=== PATIENT | female | born 1975 | race Caucasian/White ===

== ENCOUNTER 2016-03-14 13:16 | Outpatient (RCR) | payer OTHER ==
--- OUTSIDE RECORDS SUMMARY | 2015-12-24 15:57 | XMS REPORT | Continuity of Care Document ---
Author Author [facility] Organization [facility] Address Unknown Phone Unavailable Support Name Relationship Address Phone MIGUEL ÁNGEL MARTINEZ MD Caregiver [address] [facility] [place] [address] VALE TSE MD Caregiver [address] [place] [address] SCOTT TANNER Next Of Kin [address] [address] Insurance Providers Payer Name Policy Number Subscriber Name Relationship Coventry [id number] Clarke Tanner 18 Self / Same As Patient [place] Claims [facility] [place] [id number] Clarke Tanner 18 Self / Same As Patient Advance Directives Directive Response Recorded Date/Time Advance Directives No 01/01/14 9:30am Health Care Power of Java Lead Engineer No 01/01/14 9:30am Organ Donor Yes 01/01/14 9:30am Resuscitation Status Full Code 01/01/14 9:30am Problems No known problems or medical conditions. Medications Medication Dose Route Sig Days/Qty Instructions Order Date Discontinued Date Status Aspirin 325 Mg PO DAILY 04/29/09 Active Solifenacin 04/29/09 07/24/13 Discontinued Guanfacine Hcl 04/29/09 07/24/13 Discontinued Triamterene/Hydrochlorothiazid 04/29/09 12/31/13 Discontinued Losartan/Hydrochlorothiazide 1 Tab PO DAILY 12/31/13 Active Multivitamin 1 Tab PO DAILY 12/31/13 Active Metformin HCl (Glucophage) 1,000 Mg PO TWICE A DAY WITH MEALS Active Hydrocodone/Acetaminophen 1-2 Each PO EVERY 6 HOURS 30 Qty 01/01/14 Active Social History Social History Problem Response Recorded Date/Time Smoking Status Former Smoker 01/01/2014 9:30am Query Response Start Date Stop Date Smoking Status Former Smoker 01/01/2007 Hospital Discharge Instructions No hospital discharge instructions. Plan of Care No plan of care. Functional Status No functional status results. Allergies, Adverse Reactions, Alerts Allergen Type Severity Reaction Status Last Updated Sulfa (Sulfonamide Antibiotics) ([id number]) Allergy Mild "PUTS ME TO SLEEP " Active 09/28/08 Immunizations No immunization records. Vital Signs Acute Vital Signs Vital Response Date/Time Temperature (Fahrenheit) 98.2 degrees F (97.6 - 99.5) Temperature (Calculated Celsius) 36.38774 degrees C (36.4 - 37.5) Temperature Source Temporal Pulse Rate (adult) 88 bpm (60 - 90) Respiratory Rate 16 bpm (12 - 24) O2 Sat by Pulse Oximetry 97 % (88 - 100) Blood Pressure 125/81 mm Hg Pain Pain Intensity 0 Height (Feet) 5 feet Height (Inches) 7.00 inches Height (Calculated Centimeters) 170.543528 cm Weight (Pounds) 282 pounds Weight (Calculated Grams) 489572.050 gm Weight (Calculated Kilograms) 127.667592 kilograms Height 5 ft 7 in Weight 282 lb Body Mass Index 44.2 kg/m^2 Results Test Source Date Result Interp. Ref. Range Comments Alanine Aminotransferase (ALT/SGPT) June 20, 2011 9:55am 64 U/L N 30- 65 [facility] Albumin June 20, 2011 9:55am 3.5 G/DL N 3.4-5.0 [facility] Alkaline Phosphatase June 20, 2011 9:55am 129 U/L N 50-136 [facility] Alpha Fetoprotein March 23, 2011 2:10pm 1.9 NG/ML - INTERPRETIVE DATAPatients who have received Oncoscinct CR/OV tracer may develop human anti-mouse antibodies that cause interference in this test and cause falsely elevated results. Please advise laboratory if this is a possibility so that alternate testing procedures may be used. Aspartate Amino Transf (AST/SGOT) June 20, 2011 9:55am 32 U/L N 15-37 [facility] BUN/Creatinine Ratio June 20, 2011 9:55am 11 - [facility] Basophils # (Auto) October 16, 2011 9:39am 0.0 10^3/uL N 0.0-0.1 Basophils (%) (Auto) October 16, 2011 9:39am 0 % N 0-10 Blood Urea Nitrogen June 20, 2011 9:55am 10 MG/DL N 7-18 [facility] Calcium Level June 20, 2011 9:55am 8.7 MG/DL N 8.5-10.1 [facility] Carbon Dioxide Level June 20, 2011 9:55am 29 MMOL/L N 21-32 [facility] Chloride Level June 20, 2011 9:55am 102 MMOL/L N 101-110 [facility] Cholesterol Level January 18, 2009 8:45am 171 MG/DL N -200 Creatinine June 20, 2011 9:55am 0.9 MG/DL N 0.6-1.3 [facility] Eosinophils # (Auto) October 16, 2011 9:39am 0.1 10^3/uL N 0.0-0.3 Eosinophils (%) (Auto) October 16, 2011 9:39am 2 % N 0-10 Ferritin January 05, 2012 10:05am 94 NG/ML - Free Thyroxine May 24, 2009 3:40pm 1.00 NG/DL N 0.59-1.17 PORT DRAW? Glucose Level June 20, 2011 9:55am 75 MG/DL N 74-106 [facility] HDL Cholesterol January 18, 2009 8:45am 39 MG/DL N 35-60 Hematocrit July 22, 2013 8:33am 39 % N 35-52 PLEASE DRAW EXTRA TUBES FOR BB.HEMO: IF HGB IS GREATER THAN 12 PLEASE SEE [facility] FOR LAB ORDER. Hemochromatosis Results September 29, 2008 4:20pm SEE FOOTNOTE COPIES - COMPOUND HETEROZYGOUS FOR THE C282Y AND H63D MUTATIONS.INTERPRETATION: DNA TESTING INDICATES THAT THIS INDIVIDUAL IS POSITIVE FOR ONE COPY EACH OF THE C282Y AND H63D MUTATION IN HFE GENE. APPROXIMATELY 3%-8% OF INDIVIDUALS WITH A BIOCHEMICAL DIAGNOSIS OF HEREDITARY HEMOCHROMATOSIS (HH) HAVE THIS GENOTYPE. THEREFORE, THIS RESULT IS CONSISTENT WITH A DIAGNOSIS OF HH FOR AN INDIVIDUAL WITH CLINICAL EVIDENCE OF HH. HOWEVER, THIS GENOTYPE DOES PREDICT A DIAGNOSIS OF HH IN AN ASYMPTOMATIC INDIVIDUAL, ONLY 0.5% -2% OF INDIVIDUALS WITH THIS GENOTYPE WILL DEVELOP SYMPTOMS OR CLINICAL EVIDENCE OF THIS DISORDER. CONSIDER GENETIC COUNSELING AND DNA TESTING FOR AT-RISK FAMILY MEMBERS. LABORATORY RESULTS AND SUBMITTED CLINICAL INFORMATION REVIEWED BY JEAN-PAUL KEITH, PH.D., ABMG, CGMB, HCLD. HEREDITARY HEMOCHROMATOSIS (HH) IS AUTOSOMALRECESSIVE DISORDER OF IRON METABOLISM THAT RESULTS IN IRON OVERLOAD AND POTENTIAL ORGAN FAILURE. IT IS ONE OF THE MOST COMMON GENETIC DISORDERS IN INDIVIDUALS OF - ANCESTRY, WITH AN ESTIMATED CARRIER FREQUENCY OF 10%. HH IS CAUSED BY MUTATIONS IN THE HFE GENE. MOST INDIVIDUALS WITH HH (60-90%) ARE HOMOZYGOUS FOR THE C282Y MUTATION. A SMALLER PERCENTAGE OF AFFECTED INDIVIDUALS ARE EITHER COMPOUND HETEROZYGOUS FOR THE C282Y AND H63D MUTATIONS (3-8%), OR HOMOZYGOUS FOR THE H63D MUTATION (APPROXIMATELY 1%). THIS ASSAY DETECTS THE TWO MUTATIONS IN THE HFE GENE, C282Y ([id number]: c.845>A) AND H63D ([id number]: c.187C>G), THAT ARE COMMONLY ASSOCIATED WITH HH. THE MUTATIONS ARE DETECTED BY MULTIPLEX-POLYMERASE CHAIN REACTION (PCR) AMPLIFICATION, FOLLOWED BY DIGESTION OF THE AMPLIFICATION PRODUCTS WITH THE RESTRICTION ENZYMES RsaI and NIaIII, FOR THE DETECTION OF THE C282Y AND H63D MUTATIONS RESPECTIVELY. FLUORSECENT-LABELED RESTRICTION FRAGMENTS ARE DETECTEDBY CAPILLARY ELECTROPHORESIS. THIS ASSAY DOES NOT DETECT OTHER MUTATIONS IN THE HFE GENE THAT CAN CAUSE HH. SINCE GENETIC VARIATION AND OTHER FACTORS CAN AFFECT THE ACCURACY OF DIRECT MUTATION TESTING, THESE RESULTS SHOULD BE INTERPRETED IN LIGHT OF CLINICAL AND FAMILIAL DATA. FOR ASSISTANCE WITH THE INTERPRETATION OF THESE RESULTS, PLEASE CONTACT YOUR LOCAL [employer] GENETIC COUNSELOR OR CALL [phone] ([phone]). THIS TEST WAS DEVELOPED AND ITS PERFORMANCE CHARACTERISTICS HAVE BEEN DETERMINED BY [facility]. PERFORMANCE CHARACTERISTICS REFER TO THE ANALYTICAL PERFORMANCE OF THE TEST. Hemoglobin July 22, 2013 8:33am 13.5 G/DL N 11.5-16.0 PLEASE DRAW EXTRA TUBES FOR BB.HEMO: IF HGB IS GREATER THAN 12 PLEASE SEE VIRGEN FOR LAB ORDER. Hemoglobin A1c January 18, 2009 8:45am 5.4 % - Immunoglobulin G November 24, 2008 8:05am 930 MG/DL - PRINT TO CCRPT5 / PORT DRAW? Immunoglobulin M November 24, 2008 8:05am 106 MG/DL - PRINT TO CCRPT5 / PORT DRAW? Iron Level July 22, 2013 8:33am 123 UG/DL - LDL Cholesterol January 18, 2009 8:45am 107 MG/DL N 0-129 Lactate Dehydrogenase May 24, 2009 3:40pm 164 U/L N 100-190 PORT DRAW ? Lymphocytes # (Auto) October 16, 2011 9:39am 1.9 X 10^3 N 1.0-4.0 Lymphocytes (%) (Auto) October 16, 2011 9:39am 24 % N 12-44 Mean Corpuscular Hemoglobin July 22, 2013 8:33am 32 PG N 25-34 PLEASE DRAW EXTRA TUBES FOR BB.HEMO: IF HGB IS GREATER THAN 12 PLEASE SEE VIRGEN FOR LAB ORDER. Mean Corpuscular Hemoglobin Concent July 22, 2013 8:33am 35 G/DL N 32-36 PLEASE DRAW EXTRA TUBES FOR BB.HEMO: IF HGB IS GREATER THAN 12 PLEASE SEE [facility]IRGEN FOR LAB ORDER. Mean Corpuscular Volume July 22, 2013 8:33am 91 FL N 80-99 PLEASE DRAW EXTRA TUBES FOR BB.HEMO: IF HGB IS GREATER THAN 12 PLEASE SEE [facility] FOR LAB ORDER. Mean Platelet Volume July 22, 2013 8:33am 10.6 FL H 7.4-10.4 PLEASE DRAW EXTRA TUBES FOR BB.HEMO: IF HGB IS GREATER THAN 12 PLEASE SEE [facility]IR[facility] FOR LAB ORDER. Monocytes # (Auto) October 16, 2011 9:39am 0.5 X 10^3 N 0.0-1.0 Monocytes (%) (Auto) October 16, 2011 9:39am 6 % N 0-12 Neutrophils # (Auto) October 16, 2011 9:39am 5.5 X 10^3 N 1.8-7.8 Neutrophils (%) (Auto) October 16, 2011 9:39am 69 % N 42-75 Platelet Count July 22, 2013 8:33am 241 10^3/uL N 130-400 PLEASE DRAW EXTRA TUBES FOR BB.HEMO: IF HGB IS GREATER THAN 12 PLEASE SEE [facility]IRGEN FOR LAB ORDER. Potassium Level June 20, 2011 9:55am 3.7 MMOL/L N 3.6-5.0 PORT FLUSH Red Blood Count July 22, 2013 8:33am 4.21 10^6/uL L 4.35-5.85 PLEASE DRAW EXTRA TUBES FOR BB.HEMO: IF HGB IS GREATER THAN 12 PLEASE SEE [facility]IRGEN FOR LAB ORDER. Red Cell Distribution Width July 22, 2013 8:33am 13.3 % N 10.0-14.5 PLEASE DRAW EXTRA TUBES FOR BB.HEMO: IF HGB IS GREATER THAN 12 PLEASE SEE [facility]IRGEN FOR LAB ORDER. Rheumatoid Factor January 05, 2012 10:05am 1:4 - Serum Viscosity November 24, 2008 8:05am 1.23 cP - Performed by [facility],[address] [place] [id number] www.[email or web address], Chelo Talbot MD, Lab. Director Sodium Level June 20, 2011 9:55am 136 MMOL/L N 135-145 [facility] Thyroid Stimulating Hormone (TSH) May 24, 2010 8:05am 1.81 UIU/ML N 0.34-5.60 PRINT TO CCRPT5 Total Bilirubin June 20, 2011 9:55am 0.4 MG/DL N 0.0-1.0 [facility] Total Iron Binding Capacity July 22, 2013 8:33am 317 UG/DL - Total Protein June 20, 2011 9:55am 7.2 G/DL N 6.4-8.2 [facility] Transferrin % Saturation July 22, 2013 8:33am 39 % - Triglycerides Level January 18, 2009 8:45am 124 MG/DL N 30.0-150.0 Urine Test May 03, 2009 6:35am NEGATIVE - Comments to [employer]: DS 5 VLDL Cholesterol January 18, 2009 8:45am 25 MG/DL N 5-40 White Blood Count July 22, 2013 8:33am 8.3 10^3/uL N 4.3-11.0 PLEASE DRAW EXTRA TUBES FOR BB.HEMO: IF HGB IS GREATER THAN 12 PLEASE SEE VIRGEN FOR LAB ORDER. Estimat Glomerular Filtration Rate June 20, 2011 9:55am > 60 - GFR INTERPRETIVE DATA UNITS FOR ESTIMATED GFR (eGFR): mL/min/1.73 M2 REFERENCE RANGE FOR ESTIMATED GFR (eGFR) eGFR NORMAL eGFR >60 MODERATELY DECREASED eGFR 30-59 SEVERLY DECREASED eGFR 15-29 KIDNEY FAILURE <15 (OR DIALYSIS) Fecal Leukocyte Stain Stool June 02, 2007 12:48pm MRSA Screen Nasal April 29, 2009 9:00am MRSA not isolated Urine Culture Urine-Straight Cath, In/Out May 03, 2009 6:35am Klebsiella Pneumoniae Procedures No known history of procedures. Encounters Encounter Location Date/Time Registered Clinic [facility] 12/31/13 9:56am
[2015-12-24 16:45] LABS: BASOPHILS # (AUTO) 0.1 10^3/uL (0.0-0.1); BASOPHILS % (AUTO) 0 % (0-10); EOSINOPHILS # (AUTO) 0.2 10^3/uL (0.0-0.3); EOSINOPHILS % (AUTO) 1 % (0-10); LYMPHOCYTES # (AUTO) 2.7 X 10^3 (1.0-4.0); LYMPHOCYTES % (AUTO) 23 % (12-44); MEAN CORPUSCULAR HEMOGLOBIN 32 PG (25-34); MEAN CORPUSCULAR HGB CONC 34 G/DL (32-36); MEAN CORPUSCULAR VOLUME 93 FL (80-99); MONOCYTES # (AUTO) 0.9 X 10^3 (0.0-1.0); MONOCYTES % (AUTO) 8 % (0-12); NEUTROPHILS # (AUTO) 8.2 X 10^3 (1.8-7.8); NEUTROPHILS % (AUTO) 68 % (42-75); PLATELET COUNT 259 10^3/uL (130-400); RED BLOOD COUNT 4.25 10^6/uL (4.35-5.85); RED CELL DISTRIBUTION WIDTH 12.3 % (10.0-14.5); WHITE BLOOD COUNT 12.1 10^3/uL (4.3-11.0)
[2015-12-24 17:05] LABS: ALANINE AMINOTRANSFERASE 20 U/L (0-55); ALBUMIN 4.1 G/DL (3.2-4.5); ANION GAP 13 MMOL/L (5-14); ASPARTATE AMINO TRANSFERASE 16 U/L (5-34); BILIRUBIN,TOTAL 0.2 MG/DL (0.1-1.0); BLOOD UREA NITROGEN 9 MG/DL (7-18); BUN/CREATININE RATIO 11; CALCIUM 9.3 MG/DL (8.5-10.1); CARBON DIOXIDE 20 MMOL/L (21-32); CHLORIDE 106 MMOL/L (98-107); CREATININE SERUM 0.84 MG/DL (0.60-1.30); GFR ESTIMATED > 60; GLUCOSE 91 MG/DL (70-105); POTASSIUM 4.2 MMOL/L (3.6-5.0); SODIUM 139 MMOL/L (135-145); TOTAL PROTEIN 6.9 G/DL (6.4-8.2)
[2015-12-24 17:27] LABS: THYROID STIMULATING HORMONE 2.07 UIU/ML (0.35-4.94)
[2015-12-26 19:29] LABS: %SAT TOTAL IRON BINDING CAPIC 28 % (15-50); TIBC 308 ug/dL (280-380)
[2015-12-27 07:49] LABS: FERRITIN 32 ng/mL (15-150); UIBC 221 ug/dL (55-450)
[~2016-03-14 13:16] MED LIST: ASP325T PO; GUAN1TAB21; HYDR-3729 PO; LOSA-35 PO; METF-380 PO; MULT-974 PO; SOLI10TA4; TRIA1CAP4
== END 2016-03-23 | disposition home or self-care (01) ==
LOC: ONC 13:16
PROVIDERS: ATTEND Internal Medicine Hematology & Oncology
DX: E83.110 Hereditary hemochromatosis (principal); E11.9 Type 2 diabetes mellitus without complications; I10 Essential (primary) hypertension; E66.01 Morbid (severe) obesity due to excess calories; Z68.36 Body mass index [BMI] 36.0-36.9, adult; E28.2 Polycystic ovarian syndrome; Z85.41 Personal history of malignant neoplasm of cervix uteri; Z45.2 Encounter for adjustment and management of vascular access device
CPT/HCPCS: 36591; 80053; 82728; 83540; 84439; 84443; 85025; 99213

== ENCOUNTER → 2016-04-04 | Outpatient (CLI) | payer OTHER ==
[~2016-04-04] MED LIST changes: +CATHETER FLUSH 10 ML SYR IV PRN; +IOHEXOL 350 MG/ML 100 ML (OMNIPAQUE 350) VIAL IV ONE; +NS 100 ML (IVPB) BAG IV ONE
--- OUTSIDE RECORDS SUMMARY | 2016-04-04 13:17 | XMS REPORT | Continuity of Care Document ---
Author Author [facility] Organization [facility] Address Unknown Phone Unavailable Support Name Relationship Address Phone MIGUEL ÁNGEL MARTINEZ MD Caregiver [address] [facility] [place] [address] VALE TSE MD Caregiver [address] [place] [address] SCOTT TANNER Next Of Kin [address] [address] Insurance Providers Payer Name Policy Number Subscriber Name Relationship [employer] [id number] Clarke Tanner 18 Self / Same As Patient [place] Claims [facility] [place] [id number] Clarke Tanner 18 Self / Same As Patient Advance Directives Directive Response Recorded Date/Time Advance Directives No 01/01/14 9:30am Health Care Power of Quality Assurance Project Manager No 01/01/14 9:30am Organ Donor Yes 01/01/14 [...] Reaction Status Last Updated Sulfa (Sulfonamide Antibiotics) ([id number]) Allergy Mild "PUTS ME TO SLEEP " Active 09/28/08 Immunizations No immunization records. Vital Signs Acute Vital Signs Vital Response Date/Time Temperature (Fahrenheit) 98.2 degrees F (97.6 - 99.5) Temperature (Calculated Celsius) 36.06292 degrees C (36.4 - 37.5) Temperature Source Temporal Pulse Rate (adult) 88 bpm (60 - 90) Respiratory Rate 16 bpm (12 - 24) O2 Sat by Pulse Oximetry 97 % (88 - 100) Blood Pressure 125/81 mm Hg Pain Pain Intensity 0 Height (Feet) 5 feet Height (Inches) 7.00 inches Height (Calculated Centimeters) 170.265752 cm Weight (Pounds) 282 pounds Weight (Calculated Grams) 122905.050 gm Weight (Calculated Kilograms) 127.154667 kilograms Height 5 ft 7 in Weight [...] TWO MUTATIONS IN THE HFE GENE, C282Y ([id number]: c.845>A) AND H63D ([id number]: c.187C>G), THAT ARE COMMONLY ASSOCIATED WITH HH. [...] OF THESE RESULTS, PLEASE CONTACT YOUR LOCAL [employer] GENETIC COUNSELOR OR CALL [phone] ([phone]). THIS TEST WAS DEVELOPED AND ITS PERFORMANCE CHARACTERISTICS HAVE BEEN DETERMINED BY [employer] [facility]. PERFORMANCE CHARACTERISTICS REFER TO THE ANALYTICAL [...] 2008 8:05am 1.23 cP - Performed by [facility],[address] [place] [id number] [email or web address], Chelo Talbot MD, Lab. Director Sodium Level [...] 03, 2009 6:35am NEGATIVE - Comments to Tube Station Attendant: DS 5 VLDL Cholesterol January 18, 2009 [...] Encounters Encounter Location Date/Time Registered Clinic [facility] 12/31/13 9:56am
--- NOTE | 2016-04-04 14:20 | Diagnostic Imaging Report ---
PROCEDURE: CT chest with contrast only. TECHNIQUE: Multiple contiguous axial images were obtained through the chest after administration of intravenous contrast. INDICATION: Followup bilateral axillary adenopathy. COMPARISON: None. DISCUSSION: There are no pathologic-appearing axillary lymph nodes identified on either side. There are thin wispy benign-appearing lymph nodes present bilaterally. All visualized lymph nodes within either axilla show a very thin uniform cortex with no suspicious lymph node identified. No focal consolidation or pulmonary nodule. Normal heart size. No pleural or pericardial fluid. No mediastinal or hilar adenopathy. There is an ill-defined soft tissue density within the anterior mediastinum which measures 3.0 x 2.4 cm and could represent residual thymic tissue though is indeterminate. This area appears to be interlaced with fat with no discrete solid nodule otherwise identified. Low-attenuation nodule within the spleen measures 2.8 x 3.4 cm and likely represents a cyst or hemangioma though is indeterminate. The gallbladder is surgically absent. The remainder of the visualized upper abdomen is unremarkable. No acute osseous abnormality is identified. IMPRESSION: 1. No suspicious or pathologically enlarged axillary lymph nodes are identified by CT. 2. Ill-defined soft tissue density within the anterior mediastinum is nonspecific though could be seen with residual thymic tissue. 3. Indeterminate low-attenuation nodule within the spleen. Dictated by: Dictated on workstation # [id number]
== END ==
LOC: RAD 13:13
PROVIDERS: ATTEND Internal Medicine Hematology & Oncology
DX: R59.9 Enlarged lymph nodes, unspecified (principal)
CPT/HCPCS: 71260

== ENCOUNTER → 2016-06-01 | Outpatient (CLI) | payer OTHER ==
[~2016-06-01] MED LIST changes: -CATHETER FLUSH 10 ML SYR IV PRN; -IOHEXOL 350 MG/ML 100 ML (OMNIPAQUE 350) VIAL IV ONE; -NS 100 ML (IVPB) BAG IV ONE
--- OUTSIDE RECORDS SUMMARY | 2016-06-01 12:16 | XMS REPORT | Continuity of Care Document ---
Author Author [facility] Organization [facility] Address Unknown Phone Unavailable Support Name Relationship Address Phone MIGUEL ÁNGEL MARTINEZ MD Caregiver [address] [facility] [place] [address] VALE TSE MD Caregiver [address] [place] [address] SCOTT TANNER Next Of Kin [address] [address] Insurance Providers Payer Name Policy Number Subscriber Name Relationship [employer] [id number] Clarke Tanner 18 Self / Same As Patient [place] Claims [facility] [place] [id number] Clarke Tanner 17 Self / Same As Patient Advance Directives Directive Response Recorded Date/Time Advance Directives No 01/01/14 9:30am Health Care Power of Inspector [place] No 01/01/14 9:30am Organ Donor Yes 01/01/14 [...] Reaction Status Last Updated Sulfa (Sulfonamide Antibiotics) ([id number]) Allergy Mild "PUTS ME TO SLEEP " Active 09/28/08 Immunizations No immunization records. Vital Signs Acute Vital Signs Vital Response Date/Time Temperature (Fahrenheit) 98.2 degrees F (97.6 - 99.5) Temperature (Calculated Celsius) 36.23103 degrees C (36.4 - 37.5) Temperature Source Temporal Pulse Rate (adult) 88 bpm (60 - 90) Respiratory Rate 16 bpm (12 - 24) O2 Sat by Pulse Oximetry 97 % (88 - 100) Blood Pressure 125/81 mm Hg Pain Pain Intensity 0 Height (Feet) 5 feet Height (Inches) 7.00 inches Height (Calculated Centimeters) 170.560148 cm Weight (Pounds) 282 pounds Weight (Calculated Grams) 583928.050 gm Weight (Calculated Kilograms) 127.694310 kilograms Height 5 ft 7 in Weight [...] TWO MUTATIONS IN THE HFE GENE, C282Y ([id number]: c.845>A) AND H63D ([id number]: c.187C>G), THAT ARE COMMONLY ASSOCIATED WITH HH. [...] OF THESE RESULTS, PLEASE CONTACT YOUR LOCAL [employer] GENETIC COUNSELOR OR CALL [phone] ([phone]). THIS TEST WAS DEVELOPED AND ITS PERFORMANCE CHARACTERISTICS HAVE BEEN DETERMINED BY [employer] [facility]. PERFORMANCE CHARACTERISTICS REFER TO THE ANALYTICAL PERFORMANCE [...] 2008 8:05am 1.23 cP - Performed by [facility],[address] [place] [id number] www.[email or web address], Chelo Talbot MD, Lab. Director Sodium Level [...] 03, 2009 6:35am NEGATIVE - Comments to Branch Lead: DS 5 VLDL Cholesterol January 18, 2009 [...] Encounters Encounter Location Date/Time Registered Clinic [facility] 12/31/13 9:56am
--- NOTE | 2016-06-01 19:55 | Diagnostic Imaging Report ---
EXAMINATION: Bilateral axilla ultrasound. INDICATION: Bilateral swelling in the axilla. FINDINGS: Lobulated areas of slightly hyperechoic tissue is seen in the right axilla, measuring 3.7 x 2.2 x 3.4 cm and on the left side, measuring 4.3 x 2.2 x 2.4 cm. This correlates with the mammographic appearance of fatty density with no solid lesion or lymph node identified. This is in favor of accessory breast tissue or lipomas. IMPRESSION: The findings are favored to be related to accessory fatty breast tissue or perhaps lipomas. Clinical followup is recommended. Followup breast imaging could be considered if there is worsening or change in the clinical exam. ACR BI-RADS Category 3: Probably benign findings. Result letter will be mailed to the patient. Note: At least 10% of breast cancer is not imaged by mammography. Dictated by: Dictated on workstation # [id number]
--- NOTE | 2016-06-01 20:07 | Diagnostic Imaging Report ---
Bilateral diagnostic mammogram. INDICATION: Bilateral axillary masses. COMPARISON STUDY: 12/10/15. The current study was also evaluated with a Computer Aided Detection (CAD) system. FINDINGS: Bilateral lumps in the axillary regions were marked and demonstrate underlying fat density tissue with no suspicious mass. The rest of the breast on both sides demonstrates heterogeneously dense parenchyma with no change from the prior exams. IMPRESSION: Stable mammographic findings. Fat density underlying the palpable areas in the axillary regions seen which could be accessory breast tissue or lipomas. Ultrasound evaluation pending. ACR BI-RADS Category 0: Incomplete. (Needs additional imaging evaluation). Result letter will be mailed to the patient. Note: At least 10% of breast cancer is not imaged by mammography. Dictated by: Dictated on workstation # [id number]
== END ==
LOC: RAD 12:12
PROVIDERS: ATTEND Family Medicine
DX: Q83.1 Accessory breast (principal)
CPT/HCPCS: 76642; 77066

== ENCOUNTER 2016-06-12 13:42 | Outpatient (RCR) | payer OTHER ==
--- OUTSIDE RECORDS SUMMARY | 2016-03-30 13:07 | XMS REPORT | Continuity of Care Document ---
Author Author [facility] Organization [facility] Address Unknown Phone Unavailable Support Name Relationship Address Phone MIGUEL ÁNGEL MARTINEZ MD Caregiver [address] [facility] [place] [address] VALE TSE MD Caregiver [address] [place] [address] SCOTT TANNER Next Of Kin [address] [address] Insurance Providers Payer Name Policy Number Subscriber Name Relationship Coventry [id number] Clarke Tanner 18 Self / Same As Patient [place] Claims [facility] [place] [id number] Clarke Tanner 18 Self / Same As Patient Advance Directives Directive Response Recorded Date/Time Advance Directives No 01/01/14 9:30am Health Care Power of Senior Manager Creative Services No 01/01/14 9:30am Organ Donor Yes 01/01/14 [...] Reaction Status Last Updated Sulfa (Sulfonamide Antibiotics) ([id number]) Allergy Mild "PUTS ME TO SLEEP " Active 09/28/08 Immunizations No immunization records. Vital Signs Acute Vital Signs Vital Response Date/Time Temperature (Fahrenheit) 98.2 degrees F (97.6 - 99.5) Temperature (Calculated Celsius) 36.35128 degrees C (36.4 - 37.5) Temperature Source Temporal Pulse Rate (adult) 88 bpm (60 - 90) Respiratory Rate 16 bpm (12 - 24) O2 Sat by Pulse Oximetry 97 % (88 - 100) Blood Pressure 125/81 mm Hg Pain Pain Intensity 0 Height (Feet) 5 feet Height (Inches) 7.00 inches Height (Calculated Centimeters) 170.988942 cm Weight (Pounds) 282 pounds Weight (Calculated Grams) 757027.050 gm Weight (Calculated Kilograms) 127.397949 kilograms Height 5 ft 7 in Weight [...] TWO MUTATIONS IN THE HFE GENE, C282Y ([id number]: c.845>A) AND H63D ([id number]: c.187C>G), THAT ARE COMMONLY ASSOCIATED WITH HH. [...] OF THESE RESULTS, PLEASE CONTACT YOUR LOCAL [employer] GENETIC COUNSELOR OR CALL [phone] ([phone]). THIS TEST WAS DEVELOPED AND ITS PERFORMANCE CHARACTERISTICS HAVE BEEN DETERMINED BY [employer] [facility]. PERFORMANCE CHARACTERISTICS REFER TO THE ANALYTICAL [...] 2008 8:05am 1.23 cP - Performed by [facility],[address] [place] [id number] www.[email or web address], Chelo Talbot MD, Lab. Director Sodium Level [...] 03, 2009 6:35am NEGATIVE - Comments to Drone Operator: DS 5 VLDL Cholesterol January 18, 2009 [...] Encounters Encounter Location Date/Time Registered Clinic [facility] 12/31/13 9:56am
== END 2016-06-28 | disposition home or self-care (01) ==
LOC: ONC 13:42
PROVIDERS: ATTEND Internal Medicine Hematology & Oncology
DX: E83.110 Hereditary hemochromatosis (principal); E11.9 Type 2 diabetes mellitus without complications; I10 Essential (primary) hypertension; E66.01 Morbid (severe) obesity due to excess calories; Z68.36 Body mass index [BMI] 36.0-36.9, adult; E28.2 Polycystic ovarian syndrome; Z85.41 Personal history of malignant neoplasm of cervix uteri; Z45.2 Encounter for adjustment and management of vascular access device
CPT/HCPCS: 36591; 99213

== ENCOUNTER → 2016-08-22 | Outpatient (CLI) | payer OTHER | LOC: LAB 16:20 | PROVIDERS: ATTEND Family Medicine | DX: Z53.9 Procedure and treatment not carried out, unspecified reason (principal) ==

== ENCOUNTER 2016-09-20 15:34 | Outpatient (RCR) | payer OTHER ==
[~2016-09-20 15:34] MED LIST changes: +ALTEPLASE 2 MG (CATHFLO) CANCER CENTER IV ONE
== END 2016-10-24 15:35 | disposition home or self-care (01) ==
LOC: ONC 15:34
PROVIDERS: ATTEND Internal Medicine Hematology & Oncology
DX: E83.110 Hereditary hemochromatosis (principal); Z85.41 Personal history of malignant neoplasm of cervix uteri; E11.9 Type 2 diabetes mellitus without complications; I10 Essential (primary) hypertension; E28.2 Polycystic ovarian syndrome; E66.01 Morbid (severe) obesity due to excess calories; Z68.36 Body mass index [BMI] 36.0-36.9, adult; Z79.899 Other long term (current) drug therapy
CPT/HCPCS: 36591; 36593; 96523; 99195; 99213

== ENCOUNTER 2016-12-05 14:54 | Outpatient (RCR) | payer OTHER ==
[~2016-12-05 14:54] MED LIST changes: -ALTEPLASE 2 MG (CATHFLO) CANCER CENTER IV ONE
== END 2016-12-16 | disposition home or self-care (01) ==
LOC: ONC 14:54
PROVIDERS: ATTEND Internal Medicine Hematology & Oncology
DX: E83.110 Hereditary hemochromatosis (principal); Z85.41 Personal history of malignant neoplasm of cervix uteri; E11.9 Type 2 diabetes mellitus without complications; I10 Essential (primary) hypertension; E28.2 Polycystic ovarian syndrome; E66.01 Morbid (severe) obesity due to excess calories; Z68.36 Body mass index [BMI] 36.0-36.9, adult; Z79.899 Other long term (current) drug therapy; Z45.2 Encounter for adjustment and management of vascular access device
CPT/HCPCS: 36591; 96523; 99213

== ENCOUNTER 2017-03-15 15:13 | Outpatient (RCR) | payer OTHER ==
[2017-02-21 14:51] LABS: BASOPHILS # (AUTO) 0.1 10^3/uL (0.0-0.1); BASOPHILS % (AUTO) 0 % (0-10); EOSINOPHILS # (AUTO) 0.2 10^3/uL (0.0-0.3); EOSINOPHILS % (AUTO) 1 % (0-10); HEMATOCRIT 41 % (35-52); HEMOGLOBIN 13.9 G/DL (11.5-16.0); LYMPHOCYTES # (AUTO) 4.6 X 10^3 (1.0-4.0); LYMPHOCYTES % (AUTO) 19 % (12-44); MEAN CORPUSCULAR HEMOGLOBIN 32 PG (25-34); MEAN CORPUSCULAR HGB CONC 34 G/DL (32-36); MEAN CORPUSCULAR VOLUME 95 FL (80-99); MONOCYTES # (AUTO) 1.8 X 10^3 (0.0-1.0); MONOCYTES % (AUTO) 8 % (0-12); NEUTROPHILS % (AUTO) 72 % (42-75); PLATELET COUNT 331 10^3/uL (130-400); RED BLOOD COUNT 4.29 10^6/uL (4.35-5.85); RED CELL DISTRIBUTION WIDTH 12.9 % (10.0-14.5); WHITE BLOOD COUNT 23.6 10^3/uL (4.3-11.0)
[2017-02-21 15:13] LABS: ALANINE AMINOTRANSFERASE 20 U/L (0-55); ALKALINE PHOSPHATASE 98 U/L (40-136); BILIRUBIN,TOTAL 0.3 MG/DL (0.1-1.0); BUN/CREATININE RATIO 13; CALCIUM 9.2 MG/DL (8.5-10.1); CARBON DIOXIDE 25 MMOL/L (21-32); CHLORIDE 104 MMOL/L (98-107); CREATININE SERUM 0.87 MG/DL (0.60-1.30); GFR ESTIMATED > 60; GLUCOSE 114 MG/DL (70-105); POTASSIUM 3.3 MMOL/L (3.6-5.0); SODIUM 139 MMOL/L (135-145); TOTAL PROTEIN 7.3 GM/DL (6.4-8.2)
== END 2017-04-29 | disposition home or self-care (01) ==
LOC: ONC 15:13
PROVIDERS: ATTEND Internal Medicine Hematology & Oncology
DX: E83.110 Hereditary hemochromatosis (principal); Z85.41 Personal history of malignant neoplasm of cervix uteri; E11.9 Type 2 diabetes mellitus without complications; I10 Essential (primary) hypertension; E28.2 Polycystic ovarian syndrome; E66.01 Morbid (severe) obesity due to excess calories; Z68.36 Body mass index [BMI] 36.0-36.9, adult; Z79.899 Other long term (current) drug therapy; Z45.2 Encounter for adjustment and management of vascular access device
CPT/HCPCS: 36591; 80053; 82728; 85025; 96523; 99195; 99213

== ENCOUNTER 2017-07-13 15:30 | Outpatient (RCR) | payer OTHER ==
[2017-05-14 15:47] LABS: BASOPHILS % (AUTO) 0 % (0-10); EOSINOPHILS # (AUTO) 0.3 10^3/uL (0.0-0.3); EOSINOPHILS % (AUTO) 2 % (0-10); HEMATOCRIT 40 % (35-52); LYMPHOCYTES # (AUTO) 2.8 X 10^3 (1.0-4.0); LYMPHOCYTES % (AUTO) 23 % (12-44); MEAN CORPUSCULAR HEMOGLOBIN 33 PG (25-34); MEAN CORPUSCULAR HGB CONC 35 G/DL (32-36); MEAN CORPUSCULAR VOLUME 95 FL (80-99); MEAN PLATELET VOLUME 10.6 FL (7.4-10.4); MONOCYTES % (AUTO) 8 % (0-12); NEUTROPHILS # (AUTO) 8.2 X 10^3 (1.8-7.8); NEUTROPHILS % (AUTO) 67 % (42-75); PLATELET COUNT 284 10^3/uL (130-400); RED CELL DISTRIBUTION WIDTH 12.3 % (10.0-14.5); WHITE BLOOD COUNT 12.3 10^3/uL (4.3-11.0)
[2017-05-14 16:06] LABS: ALANINE AMINOTRANSFERASE 31 U/L (0-55); ALKALINE PHOSPHATASE 88 U/L (40-136); BILIRUBIN,TOTAL 0.4 MG/DL (0.1-1.0); BUN/CREATININE RATIO 13; CALCIUM 9.2 MG/DL (8.5-10.1); CARBON DIOXIDE 25 MMOL/L (21-32); CHLORIDE 105 MMOL/L (98-107); CREATININE SERUM 0.85 MG/DL (0.60-1.30); GFR ESTIMATED > 60; GLUCOSE 106 MG/DL (70-105); POTASSIUM 4.1 MMOL/L (3.6-5.0); SODIUM 140 MMOL/L (135-145); TOTAL PROTEIN 6.9 GM/DL (6.4-8.2)
== END 2017-08-12 | disposition home or self-care (01) ==
LOC: ONC 15:30
PROVIDERS: ATTEND Internal Medicine Hematology & Oncology
DX: E83.110 Hereditary hemochromatosis (principal); Z85.41 Personal history of malignant neoplasm of cervix uteri; E11.9 Type 2 diabetes mellitus without complications; I10 Essential (primary) hypertension; E28.2 Polycystic ovarian syndrome; E66.01 Morbid (severe) obesity due to excess calories; Z68.36 Body mass index [BMI] 36.0-36.9, adult; Z79.899 Other long term (current) drug therapy; Z45.2 Encounter for adjustment and management of vascular access device
CPT/HCPCS: 36591; 80053; 82728; 85025; 96523; 99213

== ENCOUNTER 2017-08-29 05:38 | Outpatient (CLI) | payer OTHER ==
[~2017-08-29] VITALS: Ht 170.2 cm; Wt 108.0 kg
[2017-08-29] MEDS ORDERED: METH-336 PO (10:41)
[2017-08-29] MEDS ORDERED: NFBIOT1000 PO (10:41)
[2017-08-29] MEDS ORDERED: CHOL100045 PO (10:41)
[2017-08-29] MEDS ORDERED: VITA-189 PO (10:41)
[2017-08-29] MEDS ORDERED: BISO5TAB PO (10:41)
[2017-08-29] MEDS ORDERED: CALC600T12 PO (10:41)
[2017-08-29] MEDS ORDERED: MULT-178 PO (10:41)
[2017-08-30] MEDS ORDERED: HYDR-34 PO (09:19)
== END 2017-08-29 10:48 ==
LOC: PREOP 05:38
PROVIDERS: ATTEND Surgery
DX: Z01.818 Encounter for other preprocedural examination (principal)

== ENCOUNTER 2017-08-30 07:01 | Day surgery (SDC) | payer OTHER ==
[~2017-08-30] VITALS: Ht 170.2 cm; Wt 108.0 kg
[~2017-08-30 07:01] MED LIST changes: +BISO5TAB PO; +CALC600T12 PO; +CHOL100045 PO; +METH-336 PO; +MULT-178 PO; +NFBIOT1000 PO; +VITA-189 PO
[2017-08-30] MEDS ORDERED: LACTATED RINGERS 1,000 ML IV PRN (07:05)
[2017-08-30 07:15] VITALS: BP 125/91
[2017-08-30] MEDS ORDERED: ceFAZolin INJECTION 1,000 MG in NS (IVPB) 50 ML IV ONE (07:15)
[2017-08-30] MEDS ORDERED: HEParin (CENTRAL IV FLUSH) 500 UNIT/5 ML SYR ONE ×2 (07:37→09:48)
[2017-08-30] MEDS ORDERED: LIDOCAINE/EPI 1%-1:200,000 (XYLOCAINE) 10 ML VIAL ONE ×2 (07:38→09:48)
--- NOTE | 2017-08-30 07:54 | Progress Note-Pre Operative ---
Pre-Operative Progress Note H&P Reviewed The H&P was reviewed, patient examined and no changes noted. Date Seen by Provider: Aug 30, 2017 Time Seen by Provider: 07:45 Date H&P Reviewed: Aug 30, 2017 Time H&P Reviewed: 07:50 Pre-Operative Diagnosis: Poor venous access, Hemochromatosis, non-functioning groshong port DARCY BOURNE APRN Aug 30, 2017 7:54 am
[2017-08-30] MEDS ORDERED: ACETAMINOPHEN 325 MG TABLET/CAPLET (TYLENOL) PO PRN (08:00)
[2017-08-30] MEDS ORDERED: HYDROcodone/APAP 5 MG/325 MG (LORTAB) TAB PO ONE (08:00)
[2017-08-30] MEDS ORDERED: morphine INJ 10 MG/ML 1ML (SYR OR VIAL) IVP PRN (08:00)
[2017-08-30] MEDS ORDERED: ONDANSETRON 4 MG/2 ML (SDV) Z0FRAN IVP PRN (08:00)
[2017-08-30] MEDS ORDERED: PROPOFOL INJECTION 50 ML IV ONE (08:12)
[2017-08-30] MEDS ORDERED: LIDOCAINE PF 2% 5 ML (XYLOCAINE) VIAL ONE (08:12)
[2017-08-30] MEDS ORDERED: fentaNYL INJECTION 100 MCG/2 ML AMP ONE (08:12)
[2017-08-30] MEDS ORDERED: MIDAZOLAM 2 MG/2 ML (VERSED) VIAL ONE (08:12)
--- NOTE | 2017-08-30 09:18 | Progress Note-Post Operative ---
Post-Operative Progess Note Surgeon (s)/Soubrette (s) Surgeon MIGUEL ÁNGEL MARTINEZ MD Soubrette: dwight guerrero GREASE PRESS HELPER Pre-Operative Diagnosis Poor venous access, Hemochromatosis, non-functioning groshong port Post-Operative Diagnosis same Procedure & Operative Findings Date of Procedure 08/30/17 Procedure Performed/Findings left subclavian groshong removal and replacement under flouroscopy. Anesthesia Type MAC with local Estimated Blood Loss Estimated blood loss (mL): minimal Specimens/Packing Specimens Removed none MIGUEL ÁNGEL MARTINEZ MD Aug 30, 2017 9:18 am
[2017-08-30] MEDS ORDERED: HYDR-34 PO (09:19)
--- NOTE | 2017-08-30 09:21 | Discharge Inst-Surgical ---
D/C Lap Instructions-KIDO New, Converted, or Re-Newed RX: RX on Chart Follow Up PRN Activity as tolerated may access and use port at any time. Regular Diet Symptoms to Report: Fever over 101 degree F, Nausea/Vomiting Infection Signs and Symptoms to report: Increased redness, Foul odor of wound, Increased drainage Bathing instructions: May shower Operative Area Clean/Dry; Keep incision clean/dry If any problems/questions: Contact your physician or go to Emergency Room MIGUEL ÁNGEL MARTINEZ MD Aug 30, 2017 9:21 am
--- NOTE | 2017-08-30 09:36 | Diagnostic Imaging Report ---
INDICATION: Fluoroscopy for Groshong catheter placement. Fluoroscopy was provided in the OR during Groshong catheter placement. 31 seconds of fluoroscopy was utilized. Single images show a Groshong catheter with tip overlying the SVC. IMPRESSION: Fluoroscopy for Groshong catheter placement. Dictated by: Dictated on workstation # [id number]
[2017-08-30 10:00] VITALS: BP 125/85
--- NOTE | 2017-08-30 10:13 | Diagnostic Imaging Report ---
INDICATION: Post Groshong catheter placement. TECHNIQUE: Single view chest 9:41 AM. CORRELATION STUDY: None FINDINGS: Heart size borderline enlarged, vascular normal. Lung rdz are clear. No infiltrate, effusion or pneumothorax. Left-sided central line is present. Tip appears to be superimposed over the posterior level of the mid right atrium. IMPRESSION: 1. Left-sided central line is present. Tip is superimposed over the expected location in the mid right atrium. Clinical correlation recommended for desired positioning. Dictated by: Dictated on workstation # [id number]
[2017-08-30] MEDS ORDERED: HYDROcodone/APAP 5 MG/325 MG (LORTAB) TAB ONE (10:23)
[2017-08-30 10:30] VITALS: BP 125/85
--- NOTE | 2017-08-30 13:19 | Anesthesia-General Post-Op ---
MAC Patient Condition Mental Status/LOC: Same as Preop Cardiovascular: Satisfactory Nausea/Vomiting: Absent Respiratory: Satisfactory Pain: Controlled Complications: Absent Post Op Complications Complications None Follow Up Care/Instructions Patient Instructions None needed. Anesthesiology Discharge Order Discharge Order Patient is doing well, no complaints, stable vital signs, no apparent adverse anesthesia problems. No complications reported per nursing. NOEL TREJO CRNA Aug 30, 2017 13:19
--- NOTE | 2017-08-30 13:59 | OPERATIVE REPORT ---
DATE OF SERVICE: 08/30/2017 ATTENDING PRIMARY CARE PHYSICIAN: Avani Yoder MD. PREOPERATIVE DIAGNOSIS: History of hemochromatosis with a nonfunctioning Groshong implantable catheter. POSTOPERATIVE DIAGNOSIS: History of hemochromatosis with a nonfunctioning Groshong implantable catheter. PROCEDURE PERFORMED: Removal of left subclavian Groshong implantable catheter and replacement of left Groshong implantable catheter under fluoroscopy. SURGEON: Miguel Ángel Martinez MD. BOWLING ALLEY MANAGER: Martin Vega APRN. ANESTHESIA: Monitored anesthesia care with local. ESTIMATED BLOOD LOSS: Minimal. FINDINGS: A nonfunctioning previous Groshong port, placement of a new one under fluoroscopy with the catheter tip at the right superior vena caval - right atrial junction. DISPOSITION: The patient tolerated the procedure well. INDICATIONS: The patient is a 41-year-old female with a history of hemochromatosis requiring frequent blood tests as well as infusions. She initially had a Groshong implantable port in 2007; however, this became nonfunctional and clotted off. We had placed another port in 12/2013; however, in recent weeks, the port was unable to draw blood or saline flush. DESCRIPTION OF PROCEDURE: The patient was brought in the operating room, laid supine on the table. After adequate IV pain and sedative medications and monitored anesthesia care, the chest and neck were prepped and draped in standard surgical fashion. Lidocaine 1% with epinephrine was then used to anesthetize the overlying skin in the left subclavian region. The skin incision was then made using a 15-blade. The subcutaneous tissue was opened using electrocautery. The port capsule was then opened using blunt dissection as well as electrocautery. The port was then removed out of the subcutaneous reservoir and the catheter removed intact while holding pressure with visualization of good hemostasis. Through the same incision, the left subclavian vein was then cannulated in a similar region through a new opening for new venotomy. The guidewire was then inserted under direct visualization. The cannulating needle removed and the dilator and sheath were then introduced over the wire. The dilator and guidewire were then removed and the catheter was then placed through the sheath until the catheter tip was at the superior vena cava - right atrial junction. The sheath was then removed. The inner wire within the catheter was then removed and the catheter cut down to size and port placed onto the catheter and placed in the previous reservoir and sutured to the fascia using interrupted 3-0 Vicryl sutures. The subcutaneous tissue was then reapproximated using 3-0 Vicryl interrupted suture. Skin was closed using 4-0 Monocryl running subcuticular suture. Wound was then cleaned and covered with Dermabond. The patient tolerated the procedure well. We will start IV and oral pain medication. We will get a post-procedure chest x-ray and once placement of the catheter is confirmed the port may be accessed and used any time. Job ID: [id number] DocumentID: [id number] Dictated Date: 08/30/2017 09:29:12 Snack Bar Cook Date: 08/30/2017 13:58:38 Dictated By: MIGUEL ÁNGEL MARTINEZ MD
== END 2017-08-30 10:55 | disposition home or self-care (01) ==
LOC: SDC 07:01
PROVIDERS: ATTEND Surgery
DX: T82.49XA Other complication of vascular dialysis catheter, initial encounter (principal); E83.110 Hereditary hemochromatosis; I10 Essential (primary) hypertension; Z87.891 Personal history of nicotine dependence; Z79.899 Other long term (current) drug therapy
CPT/HCPCS: 71045; 87081

== ENCOUNTER → 2017-10-29 | Outpatient (CLI) | payer OTHER ==
[~2017-10-29] MED LIST changes: +HYDR-34 PO
== END ==
LOC: LAB 13:04
PROVIDERS: ATTEND Surgery
DX: Z98.84 Bariatric surgery status (principal)
CPT/HCPCS: 36415; 82306; 82525; 82607; 82728; 82746; 83036; 84134; 84255; 84425; 84590; 84591; 84630

== ENCOUNTER 2017-12-07 12:48 | Outpatient (RCR) | payer OTHER | END 2017-12-16 | disposition home or self-care (01) | LOC: ONC 12:48 | PROVIDERS: ATTEND Internal Medicine Hematology & Oncology | DX: E83.110 Hereditary hemochromatosis (principal); Z85.41 Personal history of malignant neoplasm of cervix uteri; E11.9 Type 2 diabetes mellitus without complications; I10 Essential (primary) hypertension; E28.2 Polycystic ovarian syndrome; E66.01 Morbid (severe) obesity due to excess calories; Z68.36 Body mass index [BMI] 36.0-36.9, adult; Z79.899 Other long term (current) drug therapy; Z45.2 Encounter for adjustment and management of vascular access device | CPT/HCPCS: 96523 ==

== ENCOUNTER → 2018-02-11 | Outpatient (CLI) | payer OTHER ==
--- NOTE | 2018-02-11 10:06 | Diagnostic Imaging Report ---
PROCEDURE: US Hepatic (Liver). TECHNIQUE: Multiple real-time grayscale images were obtained over the right upper quadrant in various projections. INDICATION: Hemochromatosis. FINDINGS: Liver is normal in size at 12.3 cm. No discrete liver mass is identified. The portal vein is patent and shows normal direction of flow. Gallbladder is surgically absent. No biliary ductal dilatation is seen. The pancreas is obscured by bowel gas. The right kidney is unremarkable. There is no ascites. IMPRESSION: Status post cholecystectomy. No significant abnormality is detected. Dictated by: Dictated on workstation # [id number]
== END ==
LOC: RAD 08:16
PROVIDERS: ATTEND Internal Medicine Hematology & Oncology
DX: E83.110 Hereditary hemochromatosis (principal); R74.0 Nonspecific elevation of levels of transaminase and lactic acid dehydrogenase [LDH]; Z90.49 Acquired absence of other specified parts of digestive tract
CPT/HCPCS: 76705

== ENCOUNTER 2018-04-12 14:26 | Outpatient (RCR) | payer OTHER ==
[2018-01-18 12:57] LABS: BASOPHILS % (AUTO) 0 % (0-10); EOSINOPHILS # (AUTO) 0.1 10^3/uL (0.0-0.3); EOSINOPHILS % (AUTO) 1 % (0-10); HEMATOCRIT 40 % (35-52); HEMOGLOBIN 13.7 G/DL (11.5-16.0); LYMPHOCYTES # (AUTO) 1.7 X 10^3 (1.0-4.0); LYMPHOCYTES % (AUTO) 28 % (12-44); MEAN CORPUSCULAR HEMOGLOBIN 32 PG (25-34); MEAN CORPUSCULAR HGB CONC 34 G/DL (32-36); MEAN CORPUSCULAR VOLUME 93 FL (80-99); MEAN PLATELET VOLUME 11.3 FL (7.4-10.4); MONOCYTES # (AUTO) 0.4 X 10^3 (0.0-1.0); MONOCYTES % (AUTO) 7 % (0-12); NEUTROPHILS # (AUTO) 3.8 X 10^3 (1.8-7.8); NEUTROPHILS % (AUTO) 63 % (42-75); PLATELET COUNT 228 10^3/uL (130-400); RED CELL DISTRIBUTION WIDTH 12.8 % (10.0-14.5)
[2018-01-18 13:18] LABS: ALANINE AMINOTRANSFERASE 58 U/L (0-55); ALBUMIN 3.9 GM/DL (3.2-4.5); ALKALINE PHOSPHATASE 141 U/L (40-136); BILIRUBIN,TOTAL 0.5 MG/DL (0.1-1.0); BUN/CREATININE RATIO 13; CALCIUM 9.7 MG/DL (8.5-10.1); CARBON DIOXIDE 21 MMOL/L (21-32); CHLORIDE 108 MMOL/L (98-107); CREATININE SERUM 0.78 MG/DL (0.60-1.30); GFR ESTIMATED > 60; GLUCOSE 109 MG/DL (70-105); POTASSIUM 3.8 MMOL/L (3.6-5.0); SODIUM 140 MMOL/L (135-145); TOTAL PROTEIN 6.6 GM/DL (6.4-8.2)
[2018-04-12 14:45] LABS: BASOPHILS % (AUTO) 0 % (0-10); EOSINOPHILS # (AUTO) 0.1 10^3/uL (0.0-0.3); EOSINOPHILS % (AUTO) 1 % (0-10); HEMATOCRIT 39 % (35-52); HEMOGLOBIN 13.1 G/DL (11.5-16.0); LYMPHOCYTES # (AUTO) 2.1 X 10^3 (1.0-4.0); LYMPHOCYTES % (AUTO) 27 % (12-44); MEAN CORPUSCULAR HEMOGLOBIN 32 PG (25-34); MEAN CORPUSCULAR HGB CONC 34 G/DL (32-36); MEAN CORPUSCULAR VOLUME 93 FL (80-99); MEAN PLATELET VOLUME 11.2 FL (7.4-10.4); MONOCYTES # (AUTO) 0.5 X 10^3 (0.0-1.0); MONOCYTES % (AUTO) 6 % (0-12); NEUTROPHILS # (AUTO) 4.9 X 10^3 (1.8-7.8); NEUTROPHILS % (AUTO) 65 % (42-75); PLATELET COUNT 218 10^3/uL (130-400); RED CELL DISTRIBUTION WIDTH 12.5 % (10.0-14.5); WHITE BLOOD COUNT 7.6 10^3/uL (4.3-11.0)
[2018-04-12 15:09] LABS: ALANINE AMINOTRANSFERASE 36 U/L (0-55); ALBUMIN 3.9 GM/DL (3.2-4.5); ALKALINE PHOSPHATASE 97 U/L (40-136); BILIRUBIN,TOTAL 0.4 MG/DL (0.1-1.0); BUN/CREATININE RATIO 15; CALCIUM 8.8 MG/DL (8.5-10.1); CARBON DIOXIDE 24 MMOL/L (21-32); CHLORIDE 108 MMOL/L (98-107); CREATININE SERUM 0.78 MG/DL (0.60-1.30); GFR ESTIMATED > 60; GLUCOSE 93 MG/DL (70-105); POTASSIUM 4.1 MMOL/L (3.6-5.0); SODIUM 138 MMOL/L (135-145); TOTAL PROTEIN 6.6 GM/DL (6.4-8.2)
== END 2018-04-18 | disposition home or self-care (01) ==
LOC: ONC 14:26
PROVIDERS: ATTEND Internal Medicine Hematology & Oncology
DX: E83.110 Hereditary hemochromatosis (principal); Z85.41 Personal history of malignant neoplasm of cervix uteri; E11.9 Type 2 diabetes mellitus without complications; I10 Essential (primary) hypertension; E28.2 Polycystic ovarian syndrome; E66.01 Morbid (severe) obesity due to excess calories; Z68.36 Body mass index [BMI] 36.0-36.9, adult; Z79.899 Other long term (current) drug therapy
CPT/HCPCS: 36591; 80053; 82728; 85025; 96523; 99213

== ENCOUNTER → 2018-04-12 | Outpatient (CLI) | payer OTHER ==
[2018-04-12 15:31] LABS: FREE T4 (FREE THYROXINE) 0.98 NG/DL (0.70-1.48)
== END ==
LOC: LAB 14:29
PROVIDERS: ATTEND Family Medicine
DX: E16.2 Hypoglycemia, unspecified (principal); R55 Syncope and collapse
CPT/HCPCS: 36415; 83036; 84439; 84443

== ENCOUNTER → 2018-07-03 | Outpatient (CLI) | payer BC, OTHER ==
--- NOTE | 2018-07-03 14:48 | Diagnostic Imaging Report ---
INDICATION: Routine screening. COMPARISON: 06/01/2016 and 12/10/2015. TECHNIQUE: 2D and 3D bilateral screening mammography was performed with CAD. FINDINGS: Both breasts are heterogeneously dense, limiting the sensitivity of mammography. Benign calcifications in the left breast are noted. No mass or malignant appearing microcalcifications are seen. The axillae are unremarkable. IMPRESSION: No mammographic features suspicious for malignancy are identified. ACR BI-RADS Category 2: Benign findings. Result letter will be mailed to the patient. Note: At least 10% of breast cancer is not imaged by mammography. Dictated by: Dictated on workstation # [id number]
== END ==
LOC: RAD 11:02
PROVIDERS: ATTEND Nurse Practitioner Family
DX: Z12.31 Encounter for screening mammogram for malignant neoplasm of breast (principal)
CPT/HCPCS: 77067

== ENCOUNTER 2018-07-15 14:14 | Outpatient (RCR) | payer BC, OTHER | END 2018-07-18 | disposition home or self-care (01) | LOC: ONC 14:14 | PROVIDERS: ATTEND Internal Medicine Hematology & Oncology | DX: E83.110 Hereditary hemochromatosis (principal); Z85.41 Personal history of malignant neoplasm of cervix uteri; E11.9 Type 2 diabetes mellitus without complications; I10 Essential (primary) hypertension; E28.2 Polycystic ovarian syndrome; Z79.899 Other long term (current) drug therapy; Z45.2 Encounter for adjustment and management of vascular access device | CPT/HCPCS: 96523; 99213 ==

== ENCOUNTER 2018-10-09 08:30 | Outpatient (RCR) | payer BC, OTHER | END 2018-11-25 | disposition home or self-care (01) | LOC: ONC 08:30 | PROVIDERS: ATTEND Internal Medicine Hematology & Oncology | DX: E83.110 Hereditary hemochromatosis (principal); Z85.41 Personal history of malignant neoplasm of cervix uteri; E11.9 Type 2 diabetes mellitus without complications; I10 Essential (primary) hypertension; E28.2 Polycystic ovarian syndrome; Z79.899 Other long term (current) drug therapy; Z45.2 Encounter for adjustment and management of vascular access device | CPT/HCPCS: 36591; 96523; 99213 ==

== ENCOUNTER → 2018-11-13 | Outpatient (CLI) | payer BC, OTHER ==
--- NOTE | 2018-11-13 15:23 | Diagnostic Imaging Report ---
INDICATION: Neck pain. COMPARISON: None. FINDINGS: Frontal, lateral, and odontoid views of the cervical spine were submitted. The cervical spine is visualized up to the C7/T1 level on the lateral projection. Evaluation of static alignment shows straightening with slight reversal of normal lordotic curvature epicentered at the C4 level. There is no significant abhinav or retrolisthesis. There is no evidence of jumped facets. There is no evidence of fracture or bone destruction. No prevertebral soft tissue swelling is seen. No significant degenerative changes are noted. Note is made of small bilateral C7 cervical ribs. The open-mouth view demonstrates normal C1/C2 alignment. IMPRESSION: 1. No acute abnormality of the cervical spine. 2. Other nonemergent findings as described above. Dictated by: Dictated on workstation # [id number]
== END ==
LOC: RAD 14:07
PROVIDERS: ATTEND Family Medicine
DX: N63.10 Unspecified lump in the right breast, unspecified quadrant (principal); M54.2 Cervicalgia
CPT/HCPCS: 72040

== ENCOUNTER → 2018-11-20 | Outpatient (CLI) | payer BC, OTHER ==
--- NOTE | 2018-11-20 18:49 | Diagnostic Imaging Report ---
INDICATION: Right breast lump. COMPARISON: Correlation is made with prior mammograms from 07/03/2018 and 06/01/2016. TECHNIQUE: Unilateral right 2-D and 3-D diagnostic mammography was performed. The current study was also evaluated with a Computer Aided Detection (CAD) system. 3-D tomosynthesis was also performed and reviewed. FINDINGS: Right breast is heterogeneously dense, limiting the sensitivity of mammography. BB marker was placed at the area of palpable abnormality in the upper and slightly inner right breast. No underlying mass is seen. No suspicious microcalcifications are identified. Right axilla is unremarkable. IMPRESSION: No mammographic features suspicious for malignancy are identified. Even so, directed sonographic interrogation of the area of palpable abnormality is recommended and will be performed today. ACR BI-RADS Category 0: Incomplete. (Needs additional imaging evaluation). Result letter will be mailed to the patient. Note: At least 10% of breast cancer is not imaged by mammography. Dictated by: Dictated on workstation # [id number]
--- NOTE | 2018-11-20 18:51 | Diagnostic Imaging Report ---
INDICATION: Right breast lump. COMPARISON: Correlation is made with diagnostic mammogram earlier the same day. FINDINGS: Sonographic interrogation of the area of lump in the right breast was performed. This corresponds to the upper and inner aspects of the right breast at approximately 1 o'clock location. No suspicious sonographic abnormality is seen. There is a small hypoechogenicity at this location measuring approximately 6 mm x 4 mm, perhaps an area of asymmetric fibroglandular tissue. No abnormal shadowing or vascularity is seen. IMPRESSION: No suspicious sonographic abnormality is identified. Close clinical and self-breast exam is recommended to confirm stability of the palpable abnormality. Negative imaging should not necessarily preclude biopsy of a clinically suspicious palpable abnormality. ACR BI-RADS Category 1: Negative. Dictated by: Dictated on workstation # [id number]
== END ==
LOC: RAD 13:46
PROVIDERS: ATTEND Family Medicine
DX: N63.10 Unspecified lump in the right breast, unspecified quadrant (principal); M54.2 Cervicalgia

== ENCOUNTER 2018-11-26 10:41 | Outpatient (RCR) | payer BC, OTHER | END 2019-01-08 15:03 | disposition home or self-care (01) | LOC: ONC 10:41 | PROVIDERS: ATTEND Internal Medicine Hematology & Oncology | DX: E83.110 Hereditary hemochromatosis (principal); Z85.41 Personal history of malignant neoplasm of cervix uteri; E11.9 Type 2 diabetes mellitus without complications; I10 Essential (primary) hypertension; E28.2 Polycystic ovarian syndrome; Z79.899 Other long term (current) drug therapy; Z45.2 Encounter for adjustment and management of vascular access device | CPT/HCPCS: 96523 ==

== ENCOUNTER 2018-12-12 13:36 | Outpatient (RCR) | payer BC, OTHER | END 2018-12-17 12:01 | disposition home or self-care (01) | PROVIDERS: ATTEND Family Medicine | DX: M54.2 Cervicalgia (principal); R29.3 Abnormal posture ==

== ENCOUNTER 2019-01-01 14:59 | Outpatient (RCR) | payer BC, OTHER | END 2019-03-20 | disposition home or self-care (01) | PROVIDERS: ATTEND Family Medicine | DX: M54.2 Cervicalgia (principal) ==

== ENCOUNTER → 2019-04-01 | Outpatient (CLI) | payer BC ==
[~2019-04-01] MED LIST changes: -BISO5TAB PO; +BISO5TAB3 PO; +GADOBUTROL 10 MMOL/10 ML (GADAVIST) VIAL IV ONE
--- NOTE | 2019-04-01 16:12 | Diagnostic Imaging Report ---
PROCEDURE: MR imaging of the brain with and without contrast. TECHNIQUE: Multiplanar, multisequence MR imaging of the brain was performed with and without contrast. INDICATION: Neck pain and headaches. COMPARISON: 05/11/2014. FINDINGS: No acute ischemia, mass, or hemorrhage. No abnormal enhancement. Stable focus of T2/FLAIR hyperintense signal in the anterior left frontal lobe subcortical white matter. The ventricles, cortical sulci, and basilar cisterns are symmetric and unremarkable. The sellar and suprasellar regions have a normal appearance. The brainstem and posterior fossa are unremarkable. A mucus retention cyst is seen in the left maxillary sinus. Otherwise, the paranasal sinuses and mastoid air cells demonstrate normal signal characteristics. The globes and orbits are symmetric and unremarkable. The scalp and calvarium have a normal appearance. IMPRESSION: 1. No acute ischemia, mass, or hemorrhage. No abnormal enhancement. 2. Stable focus of T2/FLAIR hyperintense signal in the subcortical white matter of the anterior left frontal lobe. This is nonspecific and can be seen with sequelae of migraine. Dictated by: Dictated on workstation # [id number]
--- NOTE | 2019-04-01 16:17 | Diagnostic Imaging Report ---
PROCEDURE: MR imaging cervical spine without contrast. TECHNIQUE: Multiplanar, multisequence MR imaging of the cervical spine was performed without contrast. INDICATION: Neck pain and headaches. COMPARISON: 11/13/2018. 12/06/2012. FINDINGS: No acute fracture or dislocation is seen in the cervical spine. There is slight reversal of the normal lordotic curvature of the cervical spine centered at the C5-C6 level. The vertebral body heights and disc spaces are well maintained. The bone marrow signal is unremarkable. The craniocervical junction is maintained. The cervical spinal cord demonstrates normal intrinsic signal. No epidural collections are seen. Mild degenerative changes are seen in the cervical spine, similar to the prior exam. No spinal canal or foraminal stenosis. Soft tissues of neck are unremarkable. The thyroid has a normal appearance. IMPRESSION: 1. No acute fracture or dislocation of the cervical spine. 2. Stable mild significant degenerative changes without significant spinal canal or foraminal stenosis. Dictated by: Dictated on workstation # [id number]
== END ==
LOC: RAD 14:25
PROVIDERS: ATTEND Nurse Practitioner Family
DX: M47.816 Spondylosis without myelopathy or radiculopathy, lumbar region (principal)
CPT/HCPCS: 70553; 72141

== ENCOUNTER 2019-04-02 08:52 | Outpatient (RCR) | payer BC, OTHER ==
[2019-03-26 10:35] LABS: BASOPHILS % (AUTO) 0 % (0-10); EOSINOPHILS # (AUTO) 0.1 10^3/uL (0.0-0.3); EOSINOPHILS % (AUTO) 1 % (0-10); HEMATOCRIT 40 % (35-52); HEMOGLOBIN 13.8 G/DL (11.5-16.0); LYMPHOCYTES # (AUTO) 1.5 X 10^3 (1.0-4.0); LYMPHOCYTES % (AUTO) 21 % (12-44); MEAN CORPUSCULAR HEMOGLOBIN 32 PG (25-34); MEAN CORPUSCULAR HGB CONC 35 G/DL (32-36); MEAN CORPUSCULAR VOLUME 93 FL (80-99); MONOCYTES # (AUTO) 0.5 X 10^3 (0.0-1.0); MONOCYTES % (AUTO) 7 % (0-12); NEUTROPHILS % (AUTO) 71 % (42-75); PLATELET COUNT 182 10^3/uL (130-400); RED CELL DISTRIBUTION WIDTH 12.4 % (10.0-14.5)
[2019-03-26 11:01] LABS: ALANINE AMINOTRANSFERASE 114 U/L (0-55); ALBUMIN 4.2 GM/DL (3.2-4.5); ALKALINE PHOSPHATASE 117 U/L (40-136); BILIRUBIN,TOTAL 0.4 MG/DL (0.1-1.0); BUN/CREATININE RATIO 15; CALCIUM 9.2 MG/DL (8.5-10.1); CARBON DIOXIDE 22 MMOL/L (21-32); CHLORIDE 110 MMOL/L (98-107); CREATININE SERUM 0.74 MG/DL (0.60-1.30); GFR ESTIMATED > 60; GLUCOSE 101 MG/DL (70-105); POTASSIUM 4.2 MMOL/L (3.6-5.0); SODIUM 141 MMOL/L (135-145)
[~2019-04-02 08:52] MED LIST changes: -GADOBUTROL 10 MMOL/10 ML (GADAVIST) VIAL IV ONE
== END 2019-04-08 | disposition home or self-care (01) ==
LOC: ONC 08:52
PROVIDERS: ATTEND Internal Medicine Hematology & Oncology
DX: E83.119 Hemochromatosis, unspecified (principal); Z79.899 Other long term (current) drug therapy
CPT/HCPCS: 36591; 80053; 82105; 82728; 85025; 96523; 99213

== ENCOUNTER → 2019-04-03 | Outpatient (CLI) | payer BC ==
--- NOTE | 2019-04-03 09:33 | Diagnostic Imaging Report ---
PROCEDURE: US Hepatic (Liver). TECHNIQUE: Multiple real-time grayscale images were obtained over the right upper quadrant in various projections. INDICATION: Hemachromatosis. The liver is normal in size at 15.8 cm. Liver demonstrates fairly homogeneous echotexture. No discrete mass is detected. The portal vein is patent and shows normal direction of flow. Gallbladder surgically absent. No biliary duct dilatation is seen. The pancreas was obscured by bowel gas. The visualized proximal aorta is nonaneurysmal. IVC is patent. Right kidney is without calculi or hydronephrosis. There is no ascites. IMPRESSION: Status post cholecystectomy. No acute abnormality is detected. Dictated by: Dictated on workstation # [id number]
== END ==
LOC: RAD 08:30
PROVIDERS: ATTEND Internal Medicine Hematology & Oncology
DX: E83.110 Hereditary hemochromatosis (principal)
CPT/HCPCS: 76705

== ENCOUNTER 2019-09-23 12:59 | Outpatient (RCR) | payer BC ==
[2019-09-17 13:17] LABS: BASOPHILS % (AUTO) 0 % (0-10); EOSINOPHILS # (AUTO) 0.1 10^3/uL (0.0-0.3); EOSINOPHILS % (AUTO) 1 % (0-10); HEMATOCRIT 39 % (35-52); HEMOGLOBIN 13.5 G/DL (11.5-16.0); LYMPHOCYTES # (AUTO) 1.4 X 10^3 (1.0-4.0); LYMPHOCYTES % (AUTO) 22 % (12-44); MEAN CORPUSCULAR HEMOGLOBIN 33 PG (25-34); MEAN CORPUSCULAR HGB CONC 35 G/DL (32-36); MEAN CORPUSCULAR VOLUME 94 FL (80-99); MEAN PLATELET VOLUME 10.8 FL (7.4-10.4); MONOCYTES # (AUTO) 0.5 X 10^3 (0.0-1.0); MONOCYTES % (AUTO) 7 % (0-12); NEUTROPHILS # (AUTO) 4.7 X 10^3 (1.8-7.8); NEUTROPHILS % (AUTO) 70 % (42-75); PLATELET COUNT 219 10^3/uL (130-400); WHITE BLOOD COUNT 6.7 10^3/uL (4.3-11.0)
[2019-09-17 13:43] LABS: ALANINE AMINOTRANSFERASE 22 U/L (0-55); ALBUMIN 3.9 GM/DL (3.2-4.5); ALKALINE PHOSPHATASE 83 U/L (40-136); BILIRUBIN,TOTAL 0.4 MG/DL (0.1-1.0); BUN/CREATININE RATIO 15; CALCIUM 8.9 MG/DL (8.5-10.1); CARBON DIOXIDE 26 MMOL/L (21-32); CHLORIDE 107 MMOL/L (98-107); CREATININE SERUM 0.81 MG/DL (0.60-1.30); GFR ESTIMATED > 60; GLUCOSE 81 MG/DL (70-105); POTASSIUM 4.1 MMOL/L (3.6-5.0); SODIUM 140 MMOL/L (135-145); TOTAL PROTEIN 6.8 GM/DL (6.4-8.2)
[~2019-09-23 12:59] MED LIST changes: -BISO5TAB3 PO; -CALC600T12 PO; +CLC600T PO; +NF-BISOP5 PO
== END 2019-12-05 08:49 | disposition home or self-care (01) ==
LOC: ONC 12:59
PROVIDERS: ATTEND Internal Medicine Hematology & Oncology
DX: E83.110 Hereditary hemochromatosis (principal)
CPT/HCPCS: 80053; 82728; 83540; 85025; 99213

== ENCOUNTER → 2019-11-12 | Outpatient (CLI) | payer BC ==
[~2019-11-12] MED LIST changes: +CALC600T14 PO; -CLC600T PO
== END ==
LOC: LABNPT 08:45
PROVIDERS: ATTEND Family Medicine
DX: J02.9 Acute pharyngitis, unspecified (principal); Z20.828 Contact with and (suspected) exposure to other viral communicable diseases
CPT/HCPCS: 87635

== ENCOUNTER → 2019-12-16 | Outpatient (CLI) | payer BC ==
[~2019-12-16] MED LIST changes: -CALC600T14 PO; +CLC600T PO
--- NOTE | 2019-12-16 16:18 | Diagnostic Imaging Report ---
EXAMINATION: Digital mammogram bilateral screening with CAD. INDICATION: Screening. COMPARISON: This study was compared to the prior exams of 11/20/2018, 07/03/2018, and 06/01/2016. PERSONAL HISTORY: At this time, there are no current complaints. FINDINGS: The fibroglandular tissue in both breasts is heterogeneously dense. This does limit the sensitivity of this exam. On the MLO view of the left breast lying just anterior to the breast, there is an 11 mm asymmetry. There is no corresponding abnormality seen on the craniocaudad view and this asymmetry does not appear to persist on the tomographic images. I do suspect it is related to superimposition of the fibroglandular tissues. There is no primary or secondary sign of malignancy noted. IMPRESSION: There is no evidence for malignancy. ACR BI-RADS Category 1: Negative. Result letter will be mailed to the patient. Note: At least 10% of breast cancer is not imaged by mammography. Dictated by: Dictated on workstation # [id number]
== END ==
LOC: RAD 08:00
PROVIDERS: ATTEND Obstetrics & Gynecology
DX: Z12.31 Encounter for screening mammogram for malignant neoplasm of breast (principal); Z20.828 Contact with and (suspected) exposure to other viral communicable diseases
CPT/HCPCS: 77063; 77067

== ENCOUNTER → 2020-04-15 | Outpatient (CLI) | payer BC ==
[2020-04-15 15:47] LABS: BASOPHILS % (AUTO) 0 % (0-10); EOSINOPHILS # (AUTO) 0.1 10^3/uL (0.0-0.3); EOSINOPHILS % (AUTO) 1 % (0-10); HEMATOCRIT 39 % (35-52); HEMOGLOBIN 13.3 g/dL (11.5-16.0); LYMPHOCYTES # (AUTO) 2.6 10^3/uL (1.0-4.0); LYMPHOCYTES % (AUTO) 29 % (12-44); MEAN CORPUSCULAR HEMOGLOBIN 33 pg (25-34); MEAN CORPUSCULAR HGB CONC 34 g/dL (32-36); MEAN CORPUSCULAR VOLUME 96 fL (80-99); MEAN PLATELET VOLUME 11.4 fL (9.0-12.2); MONOCYTES # (AUTO) 0.6 10^3/uL (0.0-1.0); MONOCYTES % (AUTO) 7 % (0-12); NEUTROPHILS # (AUTO) 5.8 10^3/uL (1.8-7.8); NEUTROPHILS % (AUTO) 63 % (42-75); PLATELET COUNT 216 10^3/uL (130-400); WHITE BLOOD COUNT 9.2 10^3/uL (4.3-11.0)
== END ==
LOC: ONC 15:28
PROVIDERS: ATTEND Internal Medicine Hematology & Oncology
DX: E83.110 Hereditary hemochromatosis (principal); E11.9 Type 2 diabetes mellitus without complications; I10 Essential (primary) hypertension
CPT/HCPCS: 82728; 85025

== ENCOUNTER → 2020-09-21 | Outpatient (CLI) | payer BC ==
[~2020-09-21] MED LIST changes: +CALC600T91 PO; -CLC600T PO
--- NOTE | 2020-09-21 13:23 | Diagnostic Imaging Report ---
CLINICAL INDICATION: Patient with spinal tap with abnormal lab results. Looking for possible cerebrospinal fluid leak. EXAMS: 1: MRI of the thoracic spine without IV contrast. Sequences include sagittal T2, sagittal T1, sagittal T2 fat-sat, and axial T2. 2: MRI of the lumbar spine without IV contrast. Sequences include sagittal T2, sagittal T1, sagittal T2 fat-sat, and axial T2. COMPARISON: None. FINDINGS: MRI THORACIC SPINE: There is no acute fracture or dislocation. There are Modic type II degenerative signal changes involving anterior spurs of the lower thoracic spine. There is no marrow edema seen. There are degenerative spurs involving the mid and lower thoracic spine. There is lower lumbar spine facet arthropathy. There is mild left T8-T9 and T9-T10 neural foramen narrowing due to facet arthropathy. There is no significant disc bulge involving the thoracic spine. The remainder of the thoracic spine shows no significant central canal or neural foramen narrowing. There is CSF flow artifact limiting evaluation of the central canal. Thoracic spinal cord has normal cord caliber with no abnormal signal. There is no significant paraspinal soft tissue abnormality. There is no significant pseudomeningocele or epidural fluid collection. MRI LUMBAR SPINE: There is no acute lumbar spine fracture or dislocation. There is a small intraosseous hemangioma involving the L3 vertebra. The remainder of the lumbar spine shows no significant marrow signal. The visualized portions of the distal thoracic spinal cord, conus medullaris, and cauda equina nerve roots are unremarkable. The conus medullaris tip is seen at the lower L1 vertebral body level. There is no significant paraspinal soft tissue abnormality. There is no significant paraspinal fluid collection or pseudomeningocele. There are tiny spurs anteriorly involving the lumbar spine. T12-L1: There is mild bilateral facet arthropathy. There is no significant central spinal canal or neural foramen narrowing. L1-L2: There is dvci-sy-dvioiext bilateral facet arthropathy. There is no significant central spinal canal or neural foramen narrowing. L2-L3: There is jcto-ci-nhpuayay bilateral facet arthropathy. There is no significant central spinal canal or neural foramen narrowing. L3-L4: There is bilateral moderate facet arthropathy. There is mild bilateral neural foramen narrowing. There is no significant central canal narrowing. There is no significant disc bulge. L4-L5: There is moderate bilateral facet arthropathy. There is mild disc bulging in the foraminal regions bilaterally. There is small annular tear involving the disc bulge in the left foraminal region. There is mild right neural foramen narrowing and moderate left neural foramen narrowing. There is no significant central canal stenosis. L5-S1: There is moderate bilateral facet arthropathy. There is a small central posterior disc bulge. There is mild bilateral facet arthropathy. There is no significant central canal or neural foramen narrowing. MRI THORACIC AND LUMBAR SPINE IMPRESSION: 1: Thoracic and lumbar spine MRIs show no significant pseudomeningocele or epidural fluid collection. There is CSF flow artifact limiting portions of the thoracic spinal cord/central canal regions. The thoracic spinal cord, conus medullaris, and cauda equina nerve roots are unremarkable. 2: There is mild thoracic spine degenerative disease. 3: There is lumbar spine degenerative disease, most pronounced at the L4-L5 level. There is L4-L5 disc bulging with mild right neural foramen narrowing and moderate left neural foramen narrowing. There is small annular tear involving the disc bulge in the left foraminal region. Dictated by: Dictated on workstation # [id number]
== END ==
LOC: RAD 10:15
PROVIDERS: ATTEND Internal Medicine
DX: M47.814 Spondylosis without myelopathy or radiculopathy, thoracic region (principal); G96.00 Cerebrospinal fluid leak, unspecified; M47.816 Spondylosis without myelopathy or radiculopathy, lumbar region; M51.26 Other intervertebral disc displacement, lumbar region; M48.061 Spinal stenosis, lumbar region without neurogenic claudication
CPT/HCPCS: 72146; 72148

== ENCOUNTER → 2021-07-06 | Outpatient (CLI) | payer OTHER ==
--- NOTE | 2021-07-06 14:43 | Diagnostic Imaging Report ---
INDICATION: Routine screening. Comparison is made with prior mammogram from 12/16/2019 and 07/03/2018. 2-D and 3-D bilateral screening mammography was performed with CAD. CAD is utilized. The current study was also evaluated with a Computer Aided Detection (CAD) system. Both breasts are heterogeneously dense, limiting the sensitivity of mammography. Scattered benign calcifications are noted in both breasts. No mass or malignant-appearing microcalcifications are seen. Axillae are unremarkable. IMPRESSION: BI-RADS Category 2 No mammographic features suspicious for malignancy are identified. ACR BI-RADS Category 2: Benign findings. Result letter will be mailed to the patient. Note: At least 10% of breast cancer is not imaged by mammography. Dictated by: Dictated on workstation # [id number]
== END ==
LOC: RAD 10:00
PROVIDERS: ATTEND Nurse Practitioner Family
DX: Z12.31 Encounter for screening mammogram for malignant neoplasm of breast (principal)
CPT/HCPCS: 77063; 77067

== ENCOUNTER 2022-04-25 08:43 | Outpatient (RCR) | payer OTHER | END 2022-05-16 | disposition home or self-care (01) | LOC: ONC 08:43 | PROVIDERS: ATTEND Internal Medicine Hematology & Oncology | DX: Z53.9 Procedure and treatment not carried out, unspecified reason (principal) ==

== ENCOUNTER → 2022-05-04 | Outpatient (CLI) | payer OTHER | LOC: LAB 06:16 | PROVIDERS: ATTEND Family Medicine | DX: E16.2 Hypoglycemia, unspecified (principal); I95.9 Hypotension, unspecified | CPT/HCPCS: 36415; 82533; 83036; 83525 ==

== ENCOUNTER 2022-10-23 10:19 | Outpatient (CLI) | payer OTHER ==
[~2022-10-23 10:19] MED LIST changes: -RT-ALBUTEROL SULF 2.5 MG/3 ML PRE-MIX VIAL INH ONE
== END 2022-10-23 10:55 ==
LOC: SLEEP 10:19
PROVIDERS: ATTEND Nurse Practitioner Family
DX: G47.10 Hypersomnia, unspecified (principal)
CPT/HCPCS: G0399

== ENCOUNTER → 2022-10-23 | Outpatient (CLI) | payer OTHER ==
[~2022-10-23] MED LIST changes: +RT-ALBUTEROL SULF 2.5 MG/3 ML PRE-MIX VIAL INH ONE
--- NOTE | 2022-10-23 14:45 | Diagnostic Imaging Report ---
INDICATION: Palpable lump in the left axilla. Correlation is made with prior mammogram from 07/06/2021. 2-D and 3-D bilateral diagnostic mammography was performed with CAD. Both breasts are heterogeneously dense, limiting the sensitivity of mammography. Overall parenchymal pattern is stable. No mass or malignant-appearing microcalcifications are seen. There are benign calcifications bilaterally. Axillae are unremarkable. Specifically, left axilla at the area of the BB marker, no underlying abnormality is seen. IMPRESSION: No mammographic features suspicious for malignancy are identified. Even so, sonographic interrogation of the left axilla at the area of palpable abnormality is recommended and will be performed today. Dictated by: Dictated on workstation # [id number]
--- NOTE | 2022-10-23 15:42 | Diagnostic Imaging Report ---
INDICATION: Palpable lump in the left axilla. Correlation is made with diagnostic mammogram earlier same day. Sonographic interrogation of the area of palpable fullness in the left axilla was performed. No sonographic abnormality is identified. No solid or cystic mass is detected. IMPRESSION: No sonographic abnormality is detected. The patient may return to routine annual screening mammography. ACR BI-RADS Category 1: Negative. Result letter will be mailed to the patient. Note: At least 10% of breast cancer is not imaged by mammography. BI-RADS Category 1 Dictated by: Dictated on workstation # [id number]
== END ==
LOC: RAD 13:45
PROVIDERS: ATTEND Nurse Practitioner Family
DX: N63.32 Unspecified lump in axillary tail of the left breast (principal); R05.3 Chronic cough; R06.00 Dyspnea, unspecified; Z87.891 Personal history of nicotine dependence
CPT/HCPCS: 76642; 77066; 94060; 94621; 94726; 94729; G0279; 77062